=== PATIENT | male | born 1945 | race Caucasian/White ===

== ENCOUNTER → 2016-10-10 | Outpatient (CLI) | payer MEDICARE, OTHER ==
[~2016-10-10] MED LIST: BIMA01SOL OU; BRIM1OPD OD; DORZ2OPD OU; HYDR12.55 PO; IBUP80TA PO; LOSA25TA8 PO; NEXI40CA PO; ONE50TAB PO
[2016-10-10 20:45] LABS: ALBUMIN 3.8 GM/DL (3.2-5.2); ALBUMIN/GLOBULIN RATIO 1.27 (1.00-1.93); ALKALINE PHOSPHATASE 101 U/L (45-117); ALT/SGPT 21 U/L (12-78); ANION GAP 6 MEQ/L (8-16); AST/SGOT 13 U/L (15-37); BILIRUBIN,TOTAL 0.7 MG/DL (0.2-1.0); BLOOD UREA NITROGEN 16 MG/DL (7-18); CALCIUM LEVEL 9.1 MG/DL (8.8-10.2); CARBON DIOXIDE LEVEL 29 MEQ/L (21-32); CHLORIDE LEVEL 108 MEQ/L (98-107); CREATININE FOR GFR 1.01 MG/DL (0.70-1.30); FREE T4 1.27 NG/DL (0.76-1.46); GLOMERULAR FILTRATION RATE > 60.0 (>49); GLUCOSE, FASTING 103 MG/DL (80-110); POTASSIUM SERUM 4.8 MEQ/L (3.5-5.1); SODIUM LEVEL 143 MEQ/L (136-145); TOTAL PROTEIN 6.8 GM/DL (6.4-8.2)
== END ==
LOC: M WUC 15:36
PROVIDERS: ATTEND Nurse Practitioner Family
DX: R07.9 Chest pain, unspecified (principal); R00.2 Palpitations

== ENCOUNTER → 2016-11-04 | Outpatient (CLI) | payer MEDICARE, OTHER ==
--- NOTE | 2016-11-06 08:30 | REP ---
PA and lateral chest: Comparison is 01/08/2014. The lung levi are clear. The cardiac size is normal The alisha, mediastinum, and bony thorax are unremarkable. Impression: Negative PA and lateral chest. There is no interval change. An orthopedic anchor screw is again noted in the right humeral head. Signed by Giovany Real MD 11/04/2016 11:13 A
== END ==
LOC: M WUC 10:51
PROVIDERS: ATTEND Nurse Practitioner Family
DX: R06.02 Shortness of breath (principal); Z96.9 Presence of functional implant, unspecified

== ENCOUNTER 2016-11-08 11:51 | Emergency (ER) | payer MEDICARE, OTHER ==
--- NOTE | 2016-11-08 13:01 | REP ---
CT CERVICAL SPINE WITHOUT CONTRAST: 11/08/2016. Clinical history: Trauma. Comparison: MRI 11/09/2014. Technique: Trauma protocol was utilized. Coronal and sagittal reconstructions. Findings. Diffuse cervical spondylosis from C2-3 through C6-7. Anterior and posterior osteophytes at multiple levels. Endplate sclerosis at multiple levels. No acute compression deformity. There is soft tissue calcification at the posterior disc margin of C4-5. The dens was intact. Its relationship to the anterior arch and lateral masses of C1 is normal. Spinous processes, lamina, transverse processes, pedicles, facets and transverse foramina show no acute finding. There is facet arthropathy at multiple levels. There are posterior osteophytic ridges at multiple levels with some mild central canal stenosis. Foraminal encroachment on the right at C5-6, C4-5 and bilaterally at C6-7. Impression: 1. Diffuse cervical spondylosis C2-3 through C6-7 with some mild central canal stenosis at multiple levels and foraminal encroachment on the right as described. I do not see compression deformity or acute fracture. No malalignment. 2. C1-2 relationships normal on all views. Nothing acute. Signed by Jann Alvarado MD 11/08/2016 04:44 P
--- NOTE | 2016-11-08 13:12 | REP ---
CT BRAIN WITHOUT CONTRAST: 11/08/2016. Clinical history: Trauma. Comparison: MRI 09/15/2014. Findings: The noncontrast images of the brain show ventricles midline, symmetric and mildly dilated. Their size is proportionate to the mild diffuse cerebral atrophy. There are bilateral basal ganglia calcifications in a symmetric pattern within the thalami. Heterogeneous low attenuation white matter changes are also seen in the bilateral cerebral hemispheres consistent with chronic small vessel white matter ischemic change. Mild atrophy of the cortex but no vascular territory infarct, hemorrhage, mass or mass effect identified. Brainstem intact. Cerebellum with some mild atrophy. Mastoids and visualized sinuses were clear. The calvarium and skull base are without fracture or focal lesion. There are some minor calcifications in the carotid siphons. Impression: 1. Some chronic small vessel white matter ischemic changes of aging, and bilateral basal ganglia calcifications mostly in the thalami. No acute infarct, hemorrhage, mass or mass effect. 2. No fracture skull base or calvarium and the visualized sinuses and mastoids clear. Signed by Jann Alvarado MD 11/08/2016 04:44 P
--- NOTE | 2016-11-08 13:31 | EDDOCDS ---
Nurse's Notes [facility] Name: Jason Gonzales Age: 71 yrs Sex: Male : 1945 Arrival Date: 11/08/2016 Time: 11:51 Bed 12 Private MD: Lamont Cota NCFM Diagnosis: Fall on same level due to ice and snow;Contusion of scalp;Strain of muscle, fascia and tendon at neck level Presentation: 11/08 11:59 Presenting complaint: Patient states: Slipped and fell in the driveway and struck the jo3 back of head. Currently taking xarelto. Adult Sepsis Screening: The patient does not have new or worsening altered mentation. Patient's respiratory rate is less than 22. Systolic blood pressure is greater than 100. Patient has a qSOFA score of 0- Negative Sepsis Screen. Suicide/Homicide risk assessment- the patient denies having any suicidal and/or homicidal ideations and does not present with any other emotional, behavioral or mental health complaints. Status: Patient is not a customer service professional or dependent. Transition of care: patient was not received from another setting of care. 11:59 Acuity: ANA Level 2 jo3 11:59 Method Of Arrival: Walkin/Carried/Asstd jo3 12:20 Red Flag criteria, patient assessed and taken directly to a bed. ck1 Triage Assessment: 12:06 General: Appears in no apparent distress, comfortable, Behavior is appropriate for age, jo3 cooperative. Pain: Pain currently is 5 out of 10 on a pain scale. Neurological: Level of Consciousness is awake, alert, Oriented to person, place, time. Derm: Skin is pink, warm & dry. Historical: - Allergies: Dilaudid; Torecan; - Home Meds: 1. tramadol 50 mg Oral tab 1 tab every 6 hours (Last dose: Unknown) 2. losartan 100 mg oral tab 1 tab once daily (Last dose: 11/08/2016 08:00) 3. Nexium 40 mg Oral cpDR 1 cap once daily (Last dose: 11/08/2016 08:00) 4. Xarelto 15 mg oral tab daily (Last dose: 11/08/2016 08:00) 5. atorvastatin 40 mg oral tab 1 tab once daily (Last dose: 11/07/2016) 6. Lumigan 0.03 % Opht drop 1 drop once daily 7. Alphagan P 0.1 % ophthalmic drop 1 drop every 8 hours 8. dorzolamide 2 % ophthalmic drop BID 9. timolol maleate 0.25 % Opht drop 1 drop 2 times per day 10. Restasis 0.05 % ophthalmic dpet 1 drop every 12 hours - PMHx: CVA; Glaucoma; DVT; Hypertension; GERD; - PSHx: left knee replacement; right rotator cuff repair; green field filter; Appendectomy; Tonsillectomy; Adenoidectomy; - The history from nurses notes was reviewed: and I agree with what is documented. - Social history: Smoking status: Patient states was never smoker of tobacco. No barriers to communication noted, The patient speaks fluent Anguill[place], Speaks appropriately for age. - : The pt / caregiver states he / she is on anticoagulants: Xarelto Home medication list is obtained from the patient. - Hospitalizations: : No recent hospitalization is reported. - Exposure Risk Screening:: None identified. - Immunization history:: All immunizations up-to-date. - Family history: Not pertinent. - Social history:: the patient is a non-smoker, the patient does not drink alcohol. Screenin:28 Screening information is obtained from the patient. Fall risk: No risks identified. mb9 Assistance ADL's: requires no assistance with activities of daily living. Abuse/DV Screen: The patient / caregiver reports he/she is: not in a situation that causes fear, pain or injury. Nutritional screening: No deficits noted. Advance Directives: There is no active DNR order. home support is adequate. Assessment: 12:27 General: Appears in no apparent distress, Behavior is appropriate for age, cooperative. mb9 Pain: Location: headache Pain currently is 4 out of 10 on a pain scale. Neurological: Level of Consciousness is awake, alert, Oriented to person, place, time, Customer Engineer are equal bilaterally Moves all extremities. Gait is reports pt's gait appears unsteady. . Speech is normal, Facial symmetry appears normal, Pupils are PERRLA. Respiratory: Airway is patent Respiratory effort is even, unlabored. Musculoskeletal: pt appears to have a small abrasion to the back of his head. 12:40 General: at this time velasquez from [place] notified this RN that the pt was complaining of neck mb9 pain. on assessment pt appeared uncomfortable. pt complains of pain to the cspine on palpation. dr parker notified. new orders received. c collar put in place. . 13:28 Reassessment: Patient appears in no apparent distress at this time. Patient states mb9 feeling better. Adult Sepsis Screening: The patient does not have new or worsening altered mentation. Patient's respiratory rate is less than 22. Systolic blood pressure is greater than 100. Patient has a qSOFA score of 0- Negative Sepsis Screen. General: Behavior is appropriate for age, cooperative. Pain: Location: neck; headache Pain currently is 4 out of 10 on a pain scale. Neurological: Level of Consciousness is awake, alert, Oriented to person, place, time. Respiratory: Airway is patent Respiratory effort is even, unlabored. Vital Signs: 11:54 BP 209 / 94; Pulse 80; Resp 18; Temp 98.4(O); Pulse Ox 100% on R/A; Weight 108.41 kg jrd (R); Height 5 ft. 8 in. (172.72 cm); Pain 5/10; 13:28 BP 162 / 84; Pulse 87; Resp 17; Temp 98.3(O); Pulse Ox 99% ; mb9 11:54 Body Mass Index 36.34 (108.41 kg, 172.72 cm) [facility] Vitals: 11:54 Log In Time: November 08, 2016 at 11:51. [facility] ED Course: 11:53 Patient visited by Nuno Kelly PCA. jrd 11:53 Patient moved to Waiting jrd 11:54 Lamont Cota is Private Physician. jrd 11:55 Patient visited by Nuno Kelly PCA. jrd 11:55 Patient moved to Pre RCE jrd 12:00 Triage Initiated jo3 12:07 Patient visited by Karina Martinez RN. jo3 12:07 Nikki Kaufman,SERJIO is Primary Nurse. jo3 12:07 Lala Serra RN is Primary Nurse. jo3 12:07 Patient moved to 12 jo3 12:20 David Parker MD is Attending Physician. pc 12:36 Primary Nurse role handed off by Lala Serra RN [facility] 12:36 Primary Nurse role handed off by Nikki Kaufman RN [facility] 12:55 Patient visited by David Parker MD. pc 13:08 Lamont Cota PA is Referral Physician. pc 13:21 CT Spine,Cervical W/o Contrast Returned. EDMS 13:21 CT Head Without Contrast Returned. EDMS 13:28 The patient / caregiver is instructed regarding the plan of care and ED course. mb9 13:28 No IV's were initiated during this patient's visit. No procedures done that require mb9 assistance. Order Results: Radiology Order: CT Head Without Contrast Test: CT Head Without Contrast REASON FOR EXAMINATION: Trauma; CT BRAIN WITHOUT CONTRAST: 11/08/2016.; ; Clinical history: Trauma.; ; Comparison: MRI 09/15/2014.; ; Findings: The noncontrast images of the brain show ventricles midline, symmetric; and mildly dilated. Their size is proportionate to the mild diffuse cerebral; atrophy. There are bilateral basal ganglia calcifications in a symmetric pattern; within the thalami. Heterogeneous low attenuation white matter changes are also; seen in the bilateral cerebral hemispheres consistent with chronic small vessel; white matter ischemic change. Mild atrophy of the cortex but no vascular; territory infarct, hemorrhage, mass or mass effect identified. Brainstem intact.; Cerebellum with some mild atrophy. Mastoids and visualized sinuses were clear.; The calvarium and skull base are without fracture or focal lesion. There are; some minor calcifications in the carotid siphons.; ; Impression:; 1. Some chronic small vessel white matter ischemic changes of aging, and; bilateral basal ganglia calcifications mostly in the thalami. No acute infarct,; hemorrhage, mass or mass effect.; 2. No fracture skull base or calvarium and the visualized sinuses and mastoids; clear.; ; ; ; ; Unreviewed; Radiology Order: CT Spine,Cervical W/o Contrast Test: CT Spine,Cervical W/o Contrast REASON FOR EXAMINATION: Trauma; CT CERVICAL SPINE WITHOUT CONTRAST: 11/08/2016.; ; Clinical history: Trauma.; ; Comparison: MRI 11/09/2014.; ; Technique: Trauma protocol was utilized. Coronal and sagittal reconstructions.; ; Findings. Diffuse cervical spondylosis from C2-3 through C6-7. Anterior and; posterior osteophytes at multiple levels. Endplate sclerosis at multiple levels.; No acute compression deformity. There is soft tissue calcification at the; posterior disc margin of C4-5. The dens was intact. Its relationship to the; anterior arch and lateral masses of C1 is normal. Spinous processes, lamina,; transverse processes, pedicles, facets and transverse foramina show no acute; finding. There is facet arthropathy at multiple levels. There are posterior; osteophytic ridges at multiple levels with some mild central canal stenosis.; Foraminal encroachment on the right at C5-6, C4-5 and bilaterally at C6-7.; ; Impression:; 1. Diffuse cervical spondylosis C2-3 through C6-7 with some mild central canal; stenosis at multiple levels and foraminal encroachment on the right as described.; I do not see compression deformity or acute fracture. No malalignment.; 2. C1-2 relationships normal on all views. Nothing acute.; ; ; ; Unreviewed; Outcome: 13:08 Discharge ordered by Provider. 13:28 Discharge Assessment: Patient awake, alert and oriented x 3. No cognitive and/or mb9 functional deficits noted. Patient verbalized understanding of disposition instructions. patient administered narcotics - no. The following High Risk Discharge criteria are identified: None. Condition: good Condition: stable Condition: improved. No special radiology studies were completed. Property :Personal belongings accompany Pt. 13:30 Patient left the ED. mb9 Signatures: Dispatcher [employer] EDMS David Parker MD MD pc Peters, Mary, RN Madyson Asencio mcp, RN RN Karina Garcia,RN RN Nuno Virk PCA PCA jrd Belles, Michael, RN RN mb9 JOSE MANUEL
--- NOTE | 2016-11-08 13:31 | EDDOCDS ---
Physician Documentation [facility] Name: Jason Gonzales Age: 71 yrs Sex: Male : 1945 Arrival Date: 11/08/2016 Time: 11:51 Bed 12 Private MD: Laomnt Cota NC Disposition: 11/08 13:06 Critical Care: Critical care not applicable. pc Disposition: 11/08/16 13:08 Discharged to Home/Self Care. Impression: Fall on same level due to ice and snow, Contusion of scalp, Strain of muscle, fascia and tendon at neck level. - Condition is Stable. - Discharge Instructions: Facial or Scalp Contusion, Head Injury, Adult. - Medication Reconciliation, Local Pharmacy Hours form. - Follow up: Lamont Cota PA; When: As needed; Reason: Continuance of care. - Problem is new. - Symptoms have improved. HPI: 13:02 This 71 yrs old Male presents to ER via Walkin/Carried/Asstd with complaints pc of Fall Injury, Head Injury Without LOC. 13:02 This 71 yrs old Male presents to ER via Walkin/Carried/Asstd with complaints pc of Fall Injury, Head Injury Without LOC. 13:02 The history is obtained from the patient. He slipped on ice and fell backwards, pc striking his scalp. He did not have any LOC. He is on Xarelto. He also has neck pain but denies any UE numbness or weakness. At their worst, the symptoms were mild. In the emergency department, the symptoms are unchanged. The patient has not experienced similar symptoms in the past. The patient has not recently seen a physician. Historical: - Allergies: Dilaudid; Torecan; - Home Meds: 1. tramadol 50 mg Oral tab 1 tab every 6 hours (Last dose: Unknown) 2. losartan 100 mg oral tab 1 tab once daily (Last dose: 11/08/2016 08:00) 3. Nexium 40 mg Oral cpDR 1 cap once daily (Last dose: 11/08/2016 08:00) 4. Xarelto 15 mg oral tab daily (Last dose: 11/08/2016 08:00) 5. atorvastatin 40 mg oral tab 1 tab once daily (Last dose: 11/07/2016) 6. Lumigan 0.03 % Opht drop 1 drop once daily 7. Alphagan P 0.1 % ophthalmic drop 1 drop every 8 hours 8. dorzolamide 2 % ophthalmic drop BID 9. timolol maleate 0.25 % Opht drop 1 drop 2 times per day 10. Restasis 0.05 % ophthalmic dpet 1 drop every 12 hours - PMHx: CVA; Glaucoma; DVT; Hypertension; GERD; - PSHx: left knee replacement; right rotator cuff repair; green field filter; Appendectomy; Tonsillectomy; Adenoidectomy; - The history from nurses notes was reviewed: and I agree with what is documented. - Social history: Smoking status: Patient states was never smoker of tobacco. No barriers to communication noted, The patient speaks fluent Grenadian, Speaks appropriately for age. - : The pt / caregiver states he / she is on anticoagulants: Xarelto Home medication list is obtained from the patient. - Hospitalizations: : No recent hospitalization is reported. - Exposure Risk Screening:: None identified. - Immunization history:: All immunizations up-to-date. - Family history: Not pertinent. - Social history:: the patient is a non-smoker, the patient does not drink alcohol. ROS: 13:02 All systems are negative except as listed. pc Exam: 13:06 General Appearance: no acute distress, alert. pc 13:06 EENT: normal eye inspection, ears, nose and throat normal, pharynx normal, mucous membranes moist 13:06 Neck: Nexus criteria for suspected C-spine injury is positive based on midline spinal tenderness on palpation. 13:06 Respiratory: no respiratory distress, normal breath sounds. 13:06 CVS: regular pulse rate, regular rhythm, normal S1 and S2, no murmurs, strong peripheral pulses. 13:06 Abdomen: soft, non-tender, normal bowel sounds. 13:06 Back: normal inspection. 13:06 Skin: skin color is normal, warm, dry. 13:06 Extremities: The extremities have a grossly normal appearance, are non-tender, without acute ROM abnormalities. 13:06 Neuro: oriented x 3, cranial nerves normal as tested, no motor deficits, no sensory deficits. 13:06 Psych: normal mood. Vital Signs: 11:54 BP 209 / 94; Pulse 80; Resp 18; Temp 98.4(O); Pulse Ox 100% on R/A; Weight 108.41 kg / jrd 239 lbs (R); Height 5 ft. 8 in. (172.72 cm); Pain 5/10; 13:28 BP 162 / 84; Pulse 87; Resp 17; Temp 98.3(O); Pulse Ox 99% ; mb9 11:54 Body Mass Index 36.34 (108.41 kg, 172.72 cm) jrd MDM: 12:22 CT Head Without Contrast Ordered. EDMS 12:34 CT Spine,Cervical W/o Contrast Ordered. EDMS 13:06 Differential Diagnosis: head injury on anticoagulants; Nexus positive. Plan: CTs. Data pc reviewed: old medical records, vital signs, nurses notes, all radiology studies and available results. Test interpretation: interpreted by Radiologist and personally reviewed, C-Spine CT; no acute disease, Head CT; no acute disease. The patient has been re-examined and re-evaluated. The clinical presentation did not require any ED treatment or interventions. Disposition: The historical points, examination findings, and any diagnostic results supporting the provided diagnosis, were discussed with the patient or legal guardian. The need for outpatient follow up with the provider listed on their discharge instructions was discussed. They were encouraged to return to [facility], or the nearest ED, if symptoms worsen/persist, or for any other questions/concerns. Signatures: Dispatcher [employer] David Beebe MD MD pc Peters, Mary RN Karina Francis mcp, RN RN jo3 Belles, MichaelRN RN mb9 MTDDannie
--- NOTE | 2016-11-10 14:31 | EDDOCDS ---
Physician Documentation [facility] Name: Jason Gonzales Age: 71 yrs Sex: Male : 1945 Arrival Date: 11/08/2016 Time: 11:51 Bed 12 Private MD: Lamont Cota NC Disposition: 11/08 13:06 Critical Care: Critical care not applicable. pc Disposition: 11/08/16 13:08 Discharged to Home/Self Care. Impression: Fall on same level due to ice and snow, Contusion of scalp, Strain of muscle, fascia and tendon at neck level. - Condition is Stable. - Discharge Instructions: Facial or Scalp Contusion, Head Injury, Adult. - Medication Reconciliation, Local Pharmacy Hours form. - Follow up: Lamont Cota PA; When: As needed; Reason: Continuance of care. - Problem is new. - Symptoms have improved. HPI: 13:02 This 71 yrs old Male presents to ER via Walkin/Carried/Asstd with complaints pc of Fall Injury, Head Injury Without LOC. 13:02 This 71 yrs old Male presents to ER via Walkin/Carried/Asstd with complaints pc of Fall Injury, Head Injury Without LOC. 13:02 The history is obtained from the patient. He slipped on ice and fell backwards, pc striking his scalp. He did not have any LOC. He is on Xarelto. He also has neck pain but denies any UE numbness or weakness. At their worst, the symptoms were mild. In the emergency department, the symptoms are unchanged. The patient has not experienced similar symptoms in the past. The patient has not recently seen a physician. Historical: - Allergies: Dilaudid; Torecan; - Home Meds: 1. tramadol 50 mg Oral tab 1 tab every 6 hours (Last dose: Unknown) 2. losartan 100 mg oral tab 1 tab once daily (Last dose: 11/08/2016 08:00) 3. Nexium 40 mg Oral cpDR 1 cap once daily (Last dose: 11/08/2016 08:00) 4. Xarelto 15 mg oral tab daily (Last dose: 11/08/2016 08:00) 5. atorvastatin 40 mg oral tab 1 tab once daily (Last dose: 11/07/2016) 6. Lumigan 0.03 % Opht drop 1 drop once daily 7. Alphagan P 0.1 % ophthalmic drop 1 drop every 8 hours 8. dorzolamide 2 % ophthalmic drop BID 9. timolol maleate 0.25 % Opht drop 1 drop 2 times per day 10. Restasis 0.05 % ophthalmic dpet 1 drop every 12 hours - PMHx: CVA; Glaucoma; DVT; Hypertension; GERD; - PSHx: left knee replacement; right rotator cuff repair; green field filter; Appendectomy; Tonsillectomy; Adenoidectomy; - The history from nurses notes was reviewed: and I agree with what is documented. - Social history: Smoking status: Patient states was never smoker of tobacco. No barriers to communication noted, The patient speaks fluent Kittitian, Speaks appropriately for age. - : The pt / caregiver states he / she is on anticoagulants: Xarelto Home medication list is obtained from the patient. - Hospitalizations: : No recent hospitalization is reported. - Exposure Risk Screening:: None identified. - Immunization history:: All immunizations up-to-date. - Family history: Not pertinent. - Social history:: the patient is a non-smoker, the patient does not drink alcohol. ROS: 13:02 All systems are negative except as listed. pc Exam: 13:06 General Appearance: no acute distress, alert. pc 13:06 EENT: normal eye inspection, ears, nose and throat normal, pharynx normal, mucous membranes moist 13:06 Neck: Nexus criteria for suspected C-spine injury is positive based on midline spinal tenderness on palpation. 13:06 Respiratory: no respiratory distress, normal breath sounds. 13:06 CVS: regular pulse rate, regular rhythm, normal S1 and S2, no murmurs, strong peripheral pulses. 13:06 Abdomen: soft, non-tender, normal bowel sounds. 13:06 Back: normal inspection. 13:06 Skin: skin color is normal, warm, dry. 13:06 Extremities: The extremities have a grossly normal appearance, are non-tender, without acute ROM abnormalities. 13:06 Neuro: oriented x 3, cranial nerves normal as tested, no motor deficits, no sensory deficits. 13:06 Psych: normal mood. Vital Signs: 11:54 BP 209 / 94; Pulse 80; Resp 18; Temp 98.4(O); Pulse Ox 100% on R/A; Weight 108.41 kg / jrd 239 lbs (R); Height 5 ft. 8 in. (172.72 cm); Pain 5/10; 13:28 BP 162 / 84; Pulse 87; Resp 17; Temp 98.3(O); Pulse Ox 99% ; mb9 11:54 Body Mass Index 36.34 (108.41 kg, 172.72 cm) jrd MDM: 12:22 CT Head Without Contrast Ordered. EDMS 12:34 CT Spine,Cervical W/o Contrast Ordered. EDMS 13:06 Differential Diagnosis: head injury on anticoagulants; Nexus positive. Plan: CTs. Data pc reviewed: old medical records, vital signs, nurses notes, all radiology studies and available results. Test interpretation: interpreted by Radiologist and personally reviewed, C-Spine CT; no acute disease, Head CT; no acute disease. The patient has been re-examined and re-evaluated. The clinical presentation did not require any ED treatment or interventions. Disposition: The historical points, examination findings, and any diagnostic results supporting the provided diagnosis, were discussed with the patient or legal guardian. The need for outpatient follow up with the provider listed on their discharge instructions was discussed. They were encouraged to return to [facility], or the nearest ED, if symptoms worsen/persist, or for any other questions/concerns. 14:14 Financial registration complete. mm15 14:14 [facility] Payment Agreement was scanned into [employer] and attached to record. mm15 Signatures: Dispatcher [employer] David Beebe MD MD pc Peters, Mary RN Karina Francis mcp, RN RN jo3 McGrath, Marlynn mm15 Farhat WeissRN RN mb9 The chart was reviewed and I authenticate all verbal orders and agree with the evaluation and treatment provided.Attachments: 14:14 [facility] Payment Agreement mm15 Chart Complete MTDD
--- NOTE | 2016-11-10 14:31 | EDDOCDS ---
Physician Documentation [facility] Name: Jason Gonzales Age: 71 yrs Sex: Male : 1945 Arrival Date: 11/08/2016 Time: 11:51 Bed 12 Private MD: Lamont Cota NC Disposition: 11/08 13:06 Critical Care: Critical care not applicable. pc Disposition: 11/08/16 13:08 Discharged to Home/Self Care. Impression: Fall on same level due to ice and snow, Contusion of scalp, Strain of muscle, fascia and tendon at neck level. - Condition is Stable. - Discharge Instructions: Facial or Scalp Contusion, Head Injury, Adult. - Medication Reconciliation, Local Pharmacy Hours form. - Follow up: Lamont Cota PA; When: As needed; Reason: Continuance of care. - Problem is new. - Symptoms have improved. HPI: 13:02 This 71 yrs old Male presents to ER via Walkin/Carried/Asstd with complaints pc of Fall Injury, Head Injury Without LOC. 13:02 This 71 yrs old Male presents to ER via Walkin/Carried/Asstd with complaints pc of Fall Injury, Head Injury Without LOC. 13:02 The history is obtained from the patient. He slipped on ice and fell backwards, pc striking his scalp. He did not have any LOC. He is on Xarelto. He also has neck pain but denies any UE numbness or weakness. At their worst, the symptoms were mild. In the emergency department, the symptoms are unchanged. The patient has not experienced similar symptoms in the past. The patient has not recently seen a physician. Historical: - Allergies: Dilaudid; Torecan; - Home Meds: 1. tramadol 50 mg Oral tab 1 tab every 6 hours (Last dose: Unknown) 2. losartan 100 mg oral tab 1 tab once daily (Last dose: 11/08/2016 08:00) 3. Nexium 40 mg Oral cpDR 1 cap once daily (Last dose: 11/08/2016 08:00) 4. Xarelto 15 mg oral tab daily (Last dose: 11/08/2016 08:00) 5. atorvastatin 40 mg oral tab 1 tab once daily (Last dose: 11/07/2016) 6. Lumigan 0.03 % Opht drop 1 drop once daily 7. Alphagan P 0.1 % ophthalmic drop 1 drop every 8 hours 8. dorzolamide 2 % ophthalmic drop BID 9. timolol maleate 0.25 % Opht drop 1 drop 2 times per day 10. Restasis 0.05 % ophthalmic dpet 1 drop every 12 hours - PMHx: CVA; Glaucoma; DVT; Hypertension; GERD; - PSHx: left knee replacement; right rotator cuff repair; green field filter; Appendectomy; Tonsillectomy; Adenoidectomy; - The history from nurses notes was reviewed: and I agree with what is documented. - Social history: Smoking status: Patient states was never smoker of tobacco. No barriers to communication noted, The patient speaks fluent Japanese, Speaks appropriately for age. - : The pt / caregiver states he / she is on anticoagulants: Xarelto Home medication list is obtained from the patient. - Hospitalizations: : No recent hospitalization is reported. - Exposure Risk Screening:: None identified. - Immunization history:: All immunizations up-to-date. - Family history: Not pertinent. - Social history:: the patient is a non-smoker, the patient does not drink alcohol. ROS: 13:02 All systems are negative except as listed. pc Exam: 13:06 General Appearance: no acute distress, alert. pc 13:06 EENT: normal eye inspection, ears, nose and throat normal, pharynx normal, mucous membranes moist 13:06 Neck: Nexus criteria for suspected C-spine injury is positive based on midline spinal tenderness on palpation. 13:06 Respiratory: no respiratory distress, normal breath sounds. 13:06 CVS: regular pulse rate, regular rhythm, normal S1 and S2, no murmurs, strong peripheral pulses. 13:06 Abdomen: soft, non-tender, normal bowel sounds. 13:06 Back: normal inspection. 13:06 Skin: skin color is normal, warm, dry. 13:06 Extremities: The extremities have a grossly normal appearance, are non-tender, without acute ROM abnormalities. 13:06 Neuro: oriented x 3, cranial nerves normal as tested, no motor deficits, no sensory deficits. 13:06 Psych: normal mood. Vital Signs: 11:54 BP 209 / 94; Pulse 80; Resp 18; Temp 98.4(O); Pulse Ox 100% on R/A; Weight 108.41 kg / jrd 239 lbs (R); Height 5 ft. 8 in. (172.72 cm); Pain 5/10; 13:28 BP 162 / 84; Pulse 87; Resp 17; Temp 98.3(O); Pulse Ox 99% ; mb9 11:54 Body Mass Index 36.34 (108.41 kg, 172.72 cm) jrd MDM: 12:22 CT Head Without Contrast Ordered. EDMS 12:34 CT Spine,Cervical W/o Contrast Ordered. EDMS 13:06 Differential Diagnosis: head injury on anticoagulants; Nexus positive. Plan: CTs. Data pc reviewed: old medical records, vital signs, nurses notes, all radiology studies and available results. Test interpretation: interpreted by Radiologist and personally reviewed, C-Spine CT; no acute disease, Head CT; no acute disease. The patient has been re-examined and re-evaluated. The clinical presentation did not require any ED treatment or interventions. Disposition: The historical points, examination findings, and any diagnostic results supporting the provided diagnosis, were discussed with the patient or legal guardian. The need for outpatient follow up with the provider listed on their discharge instructions was discussed. They were encouraged to return to [facility], or the nearest ED, if symptoms worsen/persist, or for any other questions/concerns. 14:14 Financial registration complete. mm15 14:14 [facility] Payment Agreement was scanned into [employer] and attached to record. mm15 Signatures: Dispatcher [employer] David Beebe MD MD pc Peters, Mary RN Karina Francis mcp, RN RN jo3 McGrath, Marlynn mm15 Farhat WeissRN RN mb9 The chart was reviewed and I authenticate all verbal orders and agree with the evaluation and treatment provided.Attachments: 14:14 [facility] Payment Agreement mm15 Chart Complete MTDD
--- NOTE | 2016-11-10 14:31 | EDDOCDS ---
Nurse's Notes [facility] Name: Jason Gonzales Age: 71 yrs Sex: Male : 1945 Arrival Date: 11/08/2016 Time: 11:51 Bed 12 Private MD: Lamont Cota NCFM Diagnosis: Fall on same level due to ice and snow;Contusion of scalp;Strain of muscle, fascia and tendon at neck level Presentation: 11/08 11:59 Presenting complaint: Patient states: Slipped and fell in the driveway and struck the jo3 back of head. Currently taking xarelto. Adult Sepsis Screening: The patient does not have new or worsening altered mentation. Patient's respiratory rate is less than 22. Systolic blood pressure is greater than 100. Patient has a qSOFA score of 0- Negative Sepsis Screen. Suicide/Homicide risk assessment- the patient denies having any suicidal and/or homicidal ideations and does not present with any other emotional, behavioral or mental health complaints. Status: Patient is not a library services assistant or dependent. Transition of care: patient was not received from another setting of care. 11:59 Acuity: ANA Level 2 jo3 11:59 Method Of Arrival: Walkin/Carried/Asstd jo3 12:20 Red Flag criteria, patient assessed and taken directly to a bed. ck1 Triage Assessment: 12:06 General: Appears in no apparent distress, comfortable, Behavior is appropriate for age, jo3 cooperative. Pain: Pain currently is 5 out of 10 on a pain scale. Neurological: Level of Consciousness is awake, alert, Oriented to person, place, time. Derm: Skin is pink, warm & dry. Historical: - Allergies: Dilaudid; Torecan; - Home Meds: 1. tramadol 50 mg Oral tab 1 tab every 6 hours (Last dose: Unknown) 2. losartan 100 mg oral tab 1 tab once daily (Last dose: 11/08/2016 08:00) 3. Nexium 40 mg Oral cpDR 1 cap once daily (Last dose: 11/08/2016 08:00) 4. Xarelto 15 mg oral tab daily (Last dose: 11/08/2016 08:00) 5. atorvastatin 40 mg oral tab 1 tab once daily (Last dose: 11/07/2016) 6. Lumigan 0.03 % Opht drop 1 drop once daily 7. Alphagan P 0.1 % ophthalmic drop 1 drop every 8 hours 8. dorzolamide 2 % ophthalmic drop BID 9. timolol maleate 0.25 % Opht drop 1 drop 2 times per day 10. Restasis 0.05 % ophthalmic dpet 1 drop every 12 hours - PMHx: CVA; Glaucoma; DVT; Hypertension; GERD; - PSHx: left knee replacement; right rotator cuff repair; green field filter; Appendectomy; Tonsillectomy; Adenoidectomy; - The history from nurses notes was reviewed: and I agree with what is documented. - Social history: Smoking status: Patient states was never smoker of tobacco. No barriers to communication noted, The patient speaks fluent [place], Speaks appropriately for age. - : The pt / caregiver states he / she is on anticoagulants: Xarelto Home medication list is obtained from the patient. - Hospitalizations: : No recent hospitalization is reported. - Exposure Risk Screening:: None identified. - Immunization history:: All immunizations up-to-date. - Family history: Not pertinent. - Social history:: the patient is a non-smoker, the patient does not drink alcohol. Screenin:28 Screening information is obtained from the patient. Fall risk: No risks identified. mb9 Assistance ADL's: requires no assistance with activities of daily living. Abuse/DV Screen: The patient / caregiver reports he/she is: not in a situation that causes fear, pain or injury. Nutritional screening: No deficits noted. Advance Directives: There is no active DNR order. home support is adequate. Assessment: 12:27 General: Appears in no apparent distress, Behavior is appropriate for age, cooperative. mb9 Pain: Location: headache Pain currently is 4 out of 10 on a pain scale. Neurological: Level of Consciousness is awake, alert, Oriented to person, place, time, Shipping Weigher are equal bilaterally Moves all extremities. Gait is reports pt's gait appears unsteady. . Speech is normal, Facial symmetry appears normal, Pupils are PERRLA. Respiratory: Airway is patent Respiratory effort is even, unlabored. Musculoskeletal: pt appears to have a small abrasion to the back of his head. 12:40 General: at this time velasquez from CT notified this RN that the pt was complaining of neck mb9 pain. on assessment pt appeared uncomfortable. pt complains of pain to the cspine on palpation. dr parker notified. new orders received. c collar put in place. . 13:28 Reassessment: Patient appears in no apparent distress at this time. Patient states mb9 feeling better. Adult Sepsis Screening: The patient does not have new or worsening altered mentation. Patient's respiratory rate is less than 22. Systolic blood pressure is greater than 100. Patient has a qSOFA score of 0- Negative Sepsis Screen. General: Behavior is appropriate for age, cooperative. Pain: Location: neck; headache Pain currently is 4 out of 10 on a pain scale. Neurological: Level of Consciousness is awake, alert, Oriented to person, place, time. Respiratory: Airway is patent Respiratory effort is even, unlabored. Vital Signs: 11:54 BP 209 / 94; Pulse 80; Resp 18; Temp 98.4(O); Pulse Ox 100% on R/A; Weight 108.41 kg jrd (R); Height 5 ft. 8 in. (172.72 cm); Pain 5/10; 13:28 BP 162 / 84; Pulse 87; Resp 17; Temp 98.3(O); Pulse Ox 99% ; mb9 11:54 Body Mass Index 36.34 (108.41 kg, 172.72 cm) [facility] Vitals: 11:54 Log In Time: November 08, 2016 at 11:51. [facility] ED Course: 11:53 Patient visited by Nuno Kelly PCA. jrd 11:53 Patient moved to Waiting jrd 11:54 Lamont Cota is Private Physician. jrd 11:55 Patient visited by Nuno Kelly PCA. jrd 11:55 Patient moved to Pre RCE jrd 12:00 Triage Initiated jo3 12:07 Patient visited by Karina Martinez RN. jo3 12:07 Nikki Kaufman,SERJIO is Primary Nurse. jo3 12:07 Lala Serra RN is Primary Nurse. jo3 12:07 Patient moved to 12 jo3 12:20 David Parker MD is Attending Physician. pc 12:36 Primary Nurse role handed off by Lala Serra RN [facility] 12:36 Primary Nurse role handed off by Nikki Kaufman RN [facility] 12:55 Patient visited by David Parker MD. pc 13:08 Lamont Cota PA is Referral Physician. pc 13:21 CT Spine,Cervical W/o Contrast Returned. EDMS 13:21 CT Head Without Contrast Returned. EDMS 13:28 The patient / caregiver is instructed regarding the plan of care and ED course. mb9 13:28 No IV's were initiated during this patient's visit. No procedures done that require mb9 assistance. 14:14 [facility] [place] Agreement was scanned into [employer] and attached to record. mm15 Order Results: Radiology Order: CT Head Without Contrast Test: CT Head Without Contrast REASON FOR EXAMINATION: Trauma; CT BRAIN WITHOUT CONTRAST: 11/08/2016.; ; Clinical history: Trauma.; ; Comparison: MRI 09/15/2014.; ; Findings: The noncontrast images of the brain show ventricles midline, symmetric; and mildly dilated. Their size is proportionate to the mild diffuse cerebral; atrophy. There are bilateral basal ganglia calcifications in a symmetric pattern; within the thalami. Heterogeneous low attenuation white matter changes are also; seen in the bilateral cerebral hemispheres consistent with chronic small vessel; white matter ischemic change. Mild atrophy of the cortex but no vascular; territory infarct, hemorrhage, mass or mass effect identified. Brainstem intact.; Cerebellum with some mild atrophy. Mastoids and visualized sinuses were clear.; The calvarium and skull base are without fracture or focal lesion. There are; some minor calcifications in the carotid siphons.; ; Impression:; ; 1. Some chronic small vessel white matter ischemic changes of aging, and; bilateral basal ganglia calcifications mostly in the thalami. No acute infarct,; hemorrhage, mass or mass effect.; ; 2. No fracture skull base or calvarium and the visualized sinuses and mastoids; clear.; ; ; Signed by; Jann Alvarado MD 11/08/2016 04:44 P; Radiology Order: CT Spine,Cervical W/o Contrast Test: CT Spine,Cervical W/o Contrast REASON FOR EXAMINATION: Trauma; CT CERVICAL SPINE WITHOUT CONTRAST: 11/08/2016.; ; Clinical history: Trauma.; ; Comparison: MRI 11/09/2014.; ; Technique: Trauma protocol was utilized. Coronal and sagittal reconstructions.; ; Findings. Diffuse cervical spondylosis from C2-3 through C6-7. Anterior and; posterior osteophytes at multiple levels. Endplate sclerosis at multiple levels.; No acute compression deformity. There is soft tissue calcification at the; posterior disc margin of C4-5. The dens was intact. Its relationship to the; anterior arch and lateral masses of C1 is normal. Spinous processes, lamina,; transverse processes, pedicles, facets and transverse foramina show no acute; finding. There is facet arthropathy at multiple levels. There are posterior; osteophytic ridges at multiple levels with some mild central canal stenosis.; Foraminal encroachment on the right at C5-6, C4-5 and bilaterally at C6-7.; ; Impression:; ; 1. Diffuse cervical spondylosis C2-3 through C6-7 with some mild central canal; stenosis at multiple levels and foraminal encroachment on the right as described.; I do not see compression deformity or acute fracture. No malalignment.; ; 2. C1-2 relationships normal on all views. Nothing acute.; ; ; Signed by; Jann Alvarado MD 11/08/2016 04:44 P; Outcome: 13:08 Discharge ordered by Provider. 13:28 Discharge Assessment: Patient awake, alert and oriented x 3. No cognitive and/or mb9 functional deficits noted. Patient verbalized understanding of disposition instructions. patient administered narcotics - no. The following High Risk Discharge criteria are identified: None. Condition: good Condition: stable Condition: improved. No special radiology studies were completed. Property :Personal belongings accompany Pt. 13:30 Patient left the ED. mb9 Signatures: Dispatcher [employer] EDMS David Parker MD MD pc Peters, Mary RN Madyson Asencio mcpRN RN [id number] Karina Martinez RN RN jo3 McGrath, Marlynn mm15 Nuno Kelly PCA VOCATIONAL TRAINER Farhat Salinas,SERJIO RN mb9 Chart Complete MTDD
== END 2016-11-08 13:30 | disposition home or self-care (01) ==
LOC: M ED 11:51
DX: S13.9XXA Sprain of joints and ligaments of unspecified parts of neck, initial encounter (principal); S00.03XA Contusion of scalp, initial encounter; W00.0XXA Fall on same level due to ice and snow, initial encounter; Y92.89 Other specified places as the place of occurrence of the external cause; Y93.01 Activity, walking, marching and hiking; Y99.8 Other external cause status; I10 Essential (primary) hypertension; K21.9 Gastro-esophageal reflux disease without esophagitis; H40.9 Unspecified glaucoma; Z86.73 Personal history of transient ischemic attack (TIA), and cerebral infarction without residual deficits; Z79.01 Long term (current) use of anticoagulants; Z79.899 Other long term (current) drug therapy; Z88.8 Allergy status to other drugs, medicaments and biological substances

== ENCOUNTER → 2016-11-29 | Outpatient (CLI) | payer MEDICARE, OTHER | LOC: M CARPUL 13:50 | PROVIDERS: ATTEND Nurse Practitioner Family | DX: R06.02 Shortness of breath (principal) ==

== ENCOUNTER → 2017-02-03 | Outpatient (CLI) | payer MEDICARE, OTHER ==
--- NOTE | 2017-02-03 15:09 | REP ---
MR LUMBAR SPINE WITHOUT CONTRAST: HISTORY: Back pain. COMPARISON: 06/22/2014 Decreased signal intensity on T2-weighted images is present in the lumbar intervertebral discs. The discs are decreased in height. These findings are consistent with disc degeneration. There is no disc bulge or herniation at the L1-2 level. The L1 nerves exit the neural foramina without compression. A diffuse disc bulge is present at the L2-3 level. The previously noted small disc protrusion is not seen. There is minimal compression of the thecal sac. The L2 nerves exit the neural foramina without compression. A diffuse disc bulge is present at the L3-4 level. There is minimal compression of the thecal sac. There is hypertrophy of the posterior articulating facets. The L3 nerves exit the neural foramina without compression. A diffuse disc bulge is present at the L4-5 level. There is minimal compression of the thecal sac. The L4 nerves exit the neural foramina without compression. A diffuse disc bulge is present at the L5-S1 level. This abuts the thecal sac. There is hypertrophy of the posterior articulating facets. There are 4 mm of grade 1 spondylolisthesis of L5 on S1. The L5 nerves exit the neural foramina without compression. Fluid is present in the left L5-S1 facet joint. The conus medullaris is normal in appearance terminating at the level of the L1-2 intervertebral disc. Increased signal intensity on T2-weighted images is present at the inferior endplate of the L1 vertebral body. This represents degenerative change. IMPRESSION: 1. Diffuse disc bulges at the L2-3 through L4-5 levels with minimal thecal sac compression. The previously noted small disc protrusion at the L2-3 level is not seen. 2. Diffuse disc bulge at the L5-S1 level. This abuts the thecal sac. There is grade 1 spondylolisthesis of L5 on S1. There is no other significant change. Signed by Francisco Menjivar MD 02/03/2017 01:13 P
== END ==
LOC: M RAD 08:01
PROVIDERS: ATTEND Nurse Practitioner Family
DX: M51.27 Other intervertebral disc displacement, lumbosacral region (principal); M43.17 Spondylolisthesis, lumbosacral region

== ENCOUNTER → 2017-02-12 | Outpatient (CLI) | payer MEDICARE, OTHER ==
[2017-02-12 20:36] LABS: ALBUMIN 3.5 GM/DL (3.2-5.2); ALBUMIN/GLOBULIN RATIO 1.09 (1.00-1.93); ALKALINE PHOSPHATASE 85 U/L (45-117); ALT/SGPT 19 U/L (12-78); ANION GAP 8 MEQ/L (8-16); AST/SGOT 13 U/L (15-37); BILIRUBIN,TOTAL 0.6 MG/DL (0.2-1.0); BLOOD UREA NITROGEN 18 MG/DL (7-18); CALCIUM LEVEL 9.1 MG/DL (8.8-10.2); CARBON DIOXIDE LEVEL 28 MEQ/L (21-32); CHLORIDE LEVEL 108 MEQ/L (98-107); GLOMERULAR FILTRATION RATE > 60.0 (>49); GLUCOSE, FASTING 90 MG/DL (80-110); POTASSIUM SERUM 4.4 MEQ/L (3.5-5.1); SODIUM LEVEL 144 MEQ/L (136-145); TOTAL PROTEIN 6.7 GM/DL (6.4-8.2)
[2017-02-12 20:37] LABS: BASO # 0.1 K/mm3 (0.0-0.2); EOS # 0.5 K/mm3 (0.0-0.50); EOS % 7.5 % (0.0-3.0); LARGE UNSTAINED CELL # 0.2 K/mm3 (0.0-0.4); LARGE UNSTAINED CELL % 2.7 % (0.0-4.0); LYMPH # 1.6 K/mm3 (1.5-4.5); LYMPH % 22.2 % (24.0-44.0); MEAN CORPUSCULAR HEMOGLOBIN 27.7 pg (27.0-33.0); MEAN CORPUSCULAR HGB CONC 31.3 g/dl (32.0-36.5); MEAN CORPUSCULAR VOLUME 88.6 fl (80.0-96.0); MONO # 0.5 K/mm3 (0.0-0.8); MONO % 7.9 % (0.0-5.0); NEUTROPHILS # 3.9 K/mm3 (1.8-7.7); NEUTROPHILS % 58.6 % (36.0-66.0); PLATELET COUNT, AUTOMATED 203 k/mm3 (150-450); RED CELL DISTRIBUTION WIDTH 14.5 % (11.5-14.5); WHITE BLOOD COUNT 6.6 K/mm3 (4.0-10.0)
== END ==
LOC: M WUC 16:40
PROVIDERS: ATTEND Internal Medicine Hematology
DX: D68.51 Activated protein C resistance (principal)

== ENCOUNTER → 2017-06-21 | Outpatient (CLI) | payer MEDICARE, OTHER ==
--- NOTE | 2017-06-21 10:50 | REP ---
Clinical: Dorsalgia. Technique: AP, lateral, and swimmers views. Findings: Alignment and kyphosis is maintained. Vertebral bodies intact. No acute fracture / compression injury or subluxation. Mild age-related changes are appreciated including subtle endplate sclerosis and very minimal marginal spurring. IVC filter identified in the right upper abdomen. Impression: Normal age appropriate thoracic spine series. Signed by Renaldo Ang MD 06/21/2017 10:42 A
== END ==
LOC: M WUC 10:23
PROVIDERS: ATTEND Physician Assistant
DX: M54.9 Dorsalgia, unspecified (principal)

== ENCOUNTER → 2017-07-03 | Outpatient (CLI) | payer MEDICARE, OTHER ==
[2017-07-03 18:02] LABS: BASO # 0.1 10^3/uL (0.0-0.2); BASO % 1.9 % (0.0-1.0); EOS # 0.6 10^3/uL (0.0-0.50); EOS % 10.7 % (0.0-3.0); IMMATURE GRANULOCYTE % 0.2 % (0-0); LYMPH # 1.3 10^3/uL (1.5-4.5); LYMPH % 24.4 % (24.0-44.0); MEAN CORPUSCULAR HEMOGLOBIN 28.8 pg (27.0-33.0); MEAN CORPUSCULAR HGB CONC 31.8 g/dl (32.0-36.5); MEAN CORPUSCULAR VOLUME 90.4 fl (80.0-96.0); MONO # 0.5 10^3/uL (0.0-0.8); MONO % 10.3 % (0.0-5.0); NEUTROPHILS # 2.8 10^3/uL (1.8-7.7); NEUTROPHILS % 52.5 % (36.0-66.0); PLATELET COUNT, AUTOMATED 181 10^3/uL (150-450); RED CELL DISTRIBUTION WIDTH 14.6 % (11.5-14.5); WHITE BLOOD COUNT 5.2 10^3/uL (4.0-10.0)
[2017-07-03 18:03] LABS: ALBUMIN 3.4 GM/DL (3.2-5.2); ALBUMIN/GLOBULIN RATIO 1.13 (1.00-1.93); ALKALINE PHOSPHATASE 82 U/L (45-117); ALT/SGPT 19 U/L (12-78); ANION GAP 7 MEQ/L (8-16); AST/SGOT 12 U/L (15-37); BILIRUBIN,TOTAL 0.7 MG/DL (0.2-1.0); BLOOD UREA NITROGEN 14 MG/DL (7-18); CALCIUM LEVEL 8.9 MG/DL (8.8-10.2); CARBON DIOXIDE LEVEL 26 MEQ/L (21-32); CHLORIDE LEVEL 107 MEQ/L (98-107); CHOLESTEROL LEVEL 155 MG/DL (<200); CREATININE FOR GFR 0.92 MG/DL (0.70-1.30); GLOMERULAR FILTRATION RATE > 60.0 (>49); GLUCOSE, FASTING 118 MG/DL (80-110); POTASSIUM SERUM 4.6 MEQ/L (3.5-5.1); SODIUM LEVEL 140 MEQ/L (136-145); TOTAL PROTEIN 6.4 GM/DL (6.4-8.2); TRIGLYCERIDES LEVEL 140 MG/DL (<150)
[2017-07-03 18:08] LABS: ADD MORPHOLOGY? NO
== END ==
LOC: M WUC 10:48
PROVIDERS: ATTEND Nurse Practitioner Family
DX: I10 Essential (primary) hypertension (principal); R73.01 Impaired fasting glucose; E78.5 Hyperlipidemia, unspecified

== ENCOUNTER → 2018-04-01 | Outpatient (CLI) | payer MEDICARE, OTHER ==
[2018-04-01 19:43] LABS: BASO # 0.1 10^3/uL (0.0-0.2); BASO % 1.4 % (0.0-1.0); EOS # 0.6 10^3/uL (0.0-0.50); EOS % 9.6 % (0.0-3.0); HEMATOCRIT 41.5 % (42.0-52.0); HEMOGLOBIN 13.7 g/dl (13.5-17.5); IMMATURE GRANULOCYTE % 0.3 % (0-3.0); LYMPH # 1.6 10^3/uL (1.5-4.5); MEAN CORPUSCULAR HEMOGLOBIN 29.7 pg (27.0-33.0); MEAN CORPUSCULAR VOLUME 89.8 fl (80.0-96.0); MONO # 0.8 10^3/uL (0.0-0.8); MONO % 11.7 % (0.0-5.0); NEUTROPHILS # 3.4 10^3/uL (1.8-7.7); PLATELET COUNT, AUTOMATED 193 10^3/uL (150-450); RED BLOOD COUNT 4.62 10^6/uL (4.30-6.10); RED CELL DISTRIBUTION WIDTH 14.2 % (11.5-14.5); WHITE BLOOD COUNT 6.5 10^3/uL (4.0-10.0)
[2018-04-01 19:59] LABS: ALBUMIN 3.5 GM/DL (3.2-5.2); ALBUMIN/GLOBULIN RATIO 1.13 (1.00-1.93); ALKALINE PHOSPHATASE 84 U/L (45-117); ALT/SGPT 31 U/L (12-78); ANION GAP 8 MEQ/L (8-16); AST/SGOT 20 U/L (7-37); BILIRUBIN,TOTAL 0.5 MG/DL (0.2-1.0); BLOOD UREA NITROGEN 17 MG/DL (7-18); CALCIUM LEVEL 8.9 MG/DL (8.8-10.2); CARBON DIOXIDE LEVEL 26 MEQ/L (21-32); CHLORIDE LEVEL 106 MEQ/L (98-107); CREATININE FOR GFR 1.04 MG/DL (0.70-1.30); GLOMERULAR FILTRATION RATE > 60.0 (>42); GLUCOSE, FASTING 106 MG/DL (70-100); POTASSIUM SERUM 4.8 MEQ/L (3.5-5.1); SODIUM LEVEL 140 MEQ/L (136-145); TOTAL PROTEIN 6.6 GM/DL (6.4-8.2)
== END ==
LOC: M WUC 16:19
DX: D68.51 Activated protein C resistance (principal)
CPT/HCPCS: 80053

== ENCOUNTER → 2018-06-24 | Outpatient (CLI) | payer MEDICARE, OTHER ==
[2018-06-24 17:31] LABS: ESTIMATED AVERAGE GLUCOSE 126 MG/DL (60-110)
[2018-06-24 17:43] LABS: ANION GAP 9 MEQ/L (8-16); BLOOD UREA NITROGEN 18 MG/DL (7-18); CALCIUM LEVEL 9.5 MG/DL (8.8-10.2); CARBON DIOXIDE LEVEL 27 MEQ/L (21-32); CHLORIDE LEVEL 108 MEQ/L (98-107); CREATININE FOR GFR 1.07 MG/DL (0.70-1.30); GLOMERULAR FILTRATION RATE > 60.0 (>42); GLUCOSE, FASTING 119 MG/DL (70-100); POTASSIUM SERUM 4.6 MEQ/L (3.5-5.1); SODIUM LEVEL 144 MEQ/L (136-145)
== END ==
LOC: M WUC 14:40
DX: I10 Essential (primary) hypertension (principal); E11.9 Type 2 diabetes mellitus without complications
CPT/HCPCS: 83036

== ENCOUNTER → 2018-07-08 | Outpatient (CLI) | payer MEDICARE, OTHER | LOC: M RAD 11:56 | DX: I10 Essential (primary) hypertension (principal); R25.2 Cramp and spasm; M79.604 Pain in right leg; M79.605 Pain in left leg | CPT/HCPCS: 93925 ==

== ENCOUNTER → 2018-07-11 | Outpatient (CLI) | payer MEDICARE, OTHER ==
[2018-07-11 13:04] LABS: ANION GAP 8 MEQ/L (8-16); BLOOD UREA NITROGEN 18 MG/DL (7-18); CALCIUM LEVEL 8.9 MG/DL (8.8-10.2); CARBON DIOXIDE LEVEL 28 MEQ/L (21-32); CHLORIDE LEVEL 106 MEQ/L (98-107); CREATININE FOR GFR 0.99 MG/DL (0.70-1.30); GLOMERULAR FILTRATION RATE > 60.0 (>42); GLUCOSE, FASTING 136 MG/DL (70-100); MAGNESIUM LEVEL 2.1 MG/DL (1.8-2.4); POTASSIUM SERUM 4.6 MEQ/L (3.5-5.1); SODIUM LEVEL 142 MEQ/L (136-145)
[2018-07-13 00:06] LABS: PSA TOTAL 0.2 ng/mL (0.0-4.0)
== END ==
LOC: M WUC 09:38
DX: I10 Essential (primary) hypertension (principal); R25.2 Cramp and spasm; Z12.5 Encounter for screening for malignant neoplasm of prostate
CPT/HCPCS: 83735

== ENCOUNTER 2021-04-26 13:00 | Emergency (ER) | payer MEDICARE, OTHER ==
[~2021-04-26] VITALS: Ht 172.7 cm; Wt 121.8 kg
[~2021-04-26 13:00] MED LIST changes: +LOSA25TA14 PO; -LOSA25TA8 PO
[2021-04-26] MEDS ORDERED: FURO20TA2 (13:18)
[2021-04-26] MEDS ORDERED: AMLO1TAB24 (13:21)
[2021-04-26] MEDS ORDERED: POTA10CA32 (13:21)
[2021-04-26] MEDS ORDERED: XARE15TA (13:21)
[2021-04-26] MEDS ORDERED: BRIM0.2S13 (13:21)
[2021-04-26] MEDS ORDERED: GABA-282 (13:21)
[2021-04-26] MEDS ORDERED: ATOR80TA59 (13:21)
[2021-04-26] MEDS ORDERED: METO1TAB32 (13:21)
[2021-04-26] MEDS ORDERED: OMEP-221 (13:21)
--- NOTE | 2021-04-26 14:48 | REP ---
INDICATION: pain. COMPARISON: None. TECHNIQUE: Three views of the left shoulder are obtained. FINDINGS: There is soft tissue fullness in the left glenohumeral articulation and the humeral head is positioned somewhat inferior widening the subacromial space. This is consistent with a large glenohumeral joint effusion. There is also a large inferiorly directed spur off the acromion process. There is osteoarthritic spurring at the AC joint as well. There is diffuse osteopenia and minimal humeral head spurring is present. The left ribcage appears intact. IMPRESSION: No fracture seen. There is evidence of a left glenohumeral joint effusion. A large acromion process spur is present. <Electronically signed by Oliverio Courtney > 04/26/21 [id number]
[2021-04-26] MEDS ORDERED: MORPHINE 10 MG/ML 1ML VIAL (J2270) IM ONE (16:30)
[2021-04-26] MEDS ORDERED: PERC5TAB12 PO (16:48)
[2021-04-26 16:54] VITALS: BP 173/81
== END 2021-04-26 17:17 | disposition home or self-care (01) ==
LOC: M ED 13:00
DX: S46.912A Strain of unspecified muscle, fascia and tendon at shoulder and upper arm level, left arm, initial encounter (principal); X50.0XXA Overexertion from strenuous movement or load, initial encounter; Y92.9 Unspecified place or not applicable; Y93.9 Activity, unspecified; Y99.8 Other external cause status; M25.412 Effusion, left shoulder; M25.712 Osteophyte, left shoulder; I10 Essential (primary) hypertension; E78.5 Hyperlipidemia, unspecified; Z86.73 Personal history of transient ischemic attack (TIA), and cerebral infarction without residual deficits; Z79.899 Other long term (current) drug therapy; Z88.8 Allergy status to other drugs, medicaments and biological substances
CPT/HCPCS: 73030; 96372; 99283; J2270